=== PATIENT | female | born 1970 | race African-American/Black ===

== ENCOUNTER 2016-11-15 09:04 | Emergency (ER) | payer OTHER ==
[~2016-11-15] VITALS: Ht 167.6 cm; Wt 63.5 kg
--- NOTE | ~2016-11-15 | CR63 ---
[facility] A Service of [facility] RADIOLOGY TEXT RESULTS PATIENT: BRAYAN SPRAGUE LOCATION: [facility] : 68 UNIT #: [id number] AGE: [address]: CONNOR FAUST SEX: F ORDER DR: [id number] [facility] [address] [place], [place] [address] [id number] P MR#: [id number] Acc #: [id number] NAME: BRAYAN SPRAGUE : 1970 SEX: F STUDY DATE/TIME: 11/15/2016 09:53 UNIT: [facility] ROOM: STUDY DESCRIPTION: CR Chest 2 View Attending Physician: Connor Faust Aprn Ordering Physician: Connor Faust Aprn Primary Care Physician: Aj Zamora M.D. MEDICAL IMAGING REPORT This report is preliminary unless electronic signature is present EXAM Chest 2 views 11/15/2016 0953 hours HISTORY Three day history of cough, shortness of air and congestion. History of hypertension. COMPARISON None. FINDINGS Upright PA and lateral views of the chest demonstrate heart size at the upper limits of normal with mildly tortuous aorta. Lungs are hyperinflated. There is linear density in the right middle lobe seen along the right heart border on the PA view and overlying the heart on the lateral view. Atelectasis is favored over pneumonia. There is no pleural effusion or pneumothorax. IMPRESSION There is linear increased density over the right heart border and projecting over the heart on the lateral view likely in the right middle lobe. Atelectasis is favored over pneumonia. There is no pleural effusion. STAT * RESULT Dictated by... Ronda Birmingham M.D. THIS IS AN ELECTRONICALLY VERIFIED REPORT Ronda Birmingham M.D. at 11/15/2016 2:10 PM [facility] A Service of [facility] RADIOLOGY TEXT RESULTS PATIENT: BRAYAN SPRAGUE LOCATION: [facility] : 68 UNIT #: [id number] AGE: [address]: CONNOR FAUST SEX: F ORDER DR: TERESITA/naveed TD: 11/15/2016 10:06 JOB #: [id number] MEDICAL IMAGING REPORT Page 1 of 1 COPY
== END 2016-11-15 10:37 | disposition home or self-care (01) ==
LOC: CED 09:04 → CFTX 09:04
DX: J18.9 Pneumonia, unspecified organism (principal); I10 Essential (primary) hypertension; F17.210 Nicotine dependence, cigarettes, uncomplicated; Z90.710 Acquired absence of both cervix and uterus; Z98.890 Other specified postprocedural states; Z88.2 Allergy status to sulfonamides; Z88.1 Allergy status to other antibiotic agents
CPT/HCPCS: 71020; 99283

== ENCOUNTER 2016-11-17 12:49 | Emergency (ER) | payer OTHER ==
[~2016-11-17] VITALS: Ht 167.6 cm; Wt 63.5 kg
--- NOTE | ~2016-11-17 | CT16 ---
[facility] A Service of [facility] RADIOLOGY TEXT RESULTS PATIENT: BRAYAN SPRAGUE LOCATION: [facility] : 68 UNIT #: [id number] AGE: [address]: Odalis Ramos MD SEX: F ORDER DR: [id number] [facility] [address] [place], [place] [address] [id number] E MR#: [id number] Acc #: [id number] NAME: BRAYAN SPRAGUE : 1970 SEX: F STUDY DATE/TIME: 11/17/2016 14:48 UNIT: [facility] ROOM: STUDY DESCRIPTION: CT Angio Chest for PE Attending Physician: Odalis Ramos M.D. Ordering Physician: Odalis Ramos M.D. Primary Care Physician: Generic Doctor Not In System MEDICAL IMAGING REPORT This report is preliminary unless electronic signature is present EXAM CT angiogram of the chest INDICATION Shortness of breath, cough and chest pain starting today. TECHNIQUE Axial CT images were obtained from the thoracic inlet through the dome of the diaphragm following the administration of intravenous contrast material. Following this, 3-D reformatted images were obtained. This CT examination was performed with one or more of the following radiation dose reduction techniques: automatic exposure control, adjustment of mA and/or kV according to patient size, and iterative reconstruction. FINDINGS No acute pulmonary thromboembolus is seen. Thoracic aorta measures within normal size limits. This examination was not optimized for evaluation of the thoracic aorta but there is no evidence of dissection. Thyroid gland, trachea and esophagus appear unremarkable. There is no pleural or pericardial effusion. Mediastinal lymph nodes do not appear pathologically enlarged. However patient does have patchy consolidation within the right middle lobe which certainly may reflect pneumonia. Correlation with any evidence of infection is suggested. Patient is also noted to have some right basilar atelectasis. No acute abnormalities are seen within the upper abdomen. No aggressive osseous abnormalities are seen. Patient does have some prominent chest wall collaterals. I question if perhaps there is some narrowing of the left innominate vein, incompletely assessed on this examination. [facility] A Service of [facility] RADIOLOGY TEXT RESULTS PATIENT: BRAYAN SPRAGUE [id number] [birth year] UNIT #: [id number] AGE: [address]: Odalsi Ramos MD SEX: F ORDER DR: IMPRESSION 1. No acute pulmonary thromboembolus seen. 2. Thoracic aorta is normal in caliber. There is no evidence of dissection. 3. Patient does have some consolidation within the right middle lobe which certainly could reflect pneumonia. Correlation with clinical presentation is suggested. 4. There are some prominent chest wall collaterals. The possibility of some narrowing involving the left innominate vein is not excluded. Dictated by... Zeinab Horton M.D. THIS IS AN ELECTRONICALLY VERIFIED REPORT Zeinab Horton M.D. at 11/18/2016 5:41 PM LESLY/naveed TD: 11/18/2016 07:14 JOB #: [id number] MEDICAL IMAGING REPORT Page 1 of 1 COPY
[2016-11-17 13:52] LABS: BASOPHIL% 0.4 % (0-2.5); EOSINOPHIL% 0.1 % (0.0-7.0); HEMATOCRIT 50.2 % (35.0-45.0); HEMOGLOBIN 16.1 gm/dL (12.0-16.0); LYMPHOCYTE# 1.2 X10e3 (1.0-3.5); LYMPHOCYTE% 16.1 % (17.0-45.0); MEAN CELL VOLUME 82.1 FL (83-96); MEAN CORPUSCULAR HEMOGLOBIN 26.3 PG (28-34); MEAN PLATELET VOLUME 7.4 FL (6.5-11.5); MONOCYTE# 0.1 X10e3 (0-1.0); MONOCYTE% 1.7 % (3.0-12.0); NEUTROPHIL# 6.3 X10e3 (1.5-7.1); NEUTROPHIL% 81.7 % (40-75); PLATELET COUNT 267 X10e3 (140-420); RED BLOOD COUNT 6.12 X10e (3.90-5.30); RED CELL DISTRIBUTION WIDTH 15.9 % (11.0-15.5); WHITE BLOOD COUNT 7.7 X10e3 (4.0-10.5)
[2016-11-17 13:53] LABS: DIFF IND NO
[2016-11-17 14:09] LABS: ALBUMIN SERUM 3.6 g/dL (3.5-5.0); ALKALINE PHOSPHATASE 80 U/L (32-92); ALT (SGPT) 32 U/L (10-40); AST (SGOT) 28 U/L (10-42); BILIRUBIN,TOTAL 0.8 mg/dL (0.2-2.0); BLOOD UREA NITROGEN 15 mg/dL (9-23); BUN/CREATININE RATIO 16.66; CALCIUM SERUM 9.3 mg/dL (8.4-10.2); CARBON DIOXIDE 27 mmol/L (22-31); CHLORIDE 105 mmol/L (100-111); CREATININE SERUM 0.9 mg/dL (0.6-1.4); GLOM FILT RATE Estimated 88.3 mL/min (>60); GLUCOSE FASTING 132 mg/dL (70-110); PROTEIN TOTAL SERUM 7.2 g/dL (6.0-8.3); SODIUM 140 mmol/L (135-145)
[2016-11-17 14:10] LABS: BILIRUBIN, DIRECT <0.1 mg/dL (0.0-0.2); BILIRUBIN,INDIRECT 0.7 mg/dL (0.0-0.9)
== END 2016-11-17 16:40 | disposition home or self-care (01) ==
LOC: CED 12:49
PROVIDERS: Emergency Medicine
DX: J18.9 Pneumonia, unspecified organism (principal); J98.01 Acute bronchospasm; I10 Essential (primary) hypertension; Z90.710 Acquired absence of both cervix and uterus; F17.210 Nicotine dependence, cigarettes, uncomplicated; Z88.2 Allergy status to sulfonamides; Z88.8 Allergy status to other drugs, medicaments and biological substances
CPT/HCPCS: 36415; 71275; 80048; 80076; 85025; 94640; 96365; 96375; 99285; J2930; J3475; Q9967